=== PATIENT | female | born 1985 | race Caucasian/White ===

== ENCOUNTER 2022-08-19 07:56 | Outpatient (CLI) | payer MEDICARE, MEDICAID, SELFPAY | END 2022-08-19 07:57 | disposition home or self-care (01) | PROVIDERS: PCP Family Medicine; Visit Provider Family Medicine | DX: Z00.00 Encounter for general adult medical examination without abnormal findings (principal); E03.9 Hypothyroidism, unspecified; E78.5 Hyperlipidemia, unspecified; R03.0 Elevated blood-pressure reading, without diagnosis of hypertension | CPT/HCPCS: 80053; 80061; 84443 ==

== ENCOUNTER 2022-09-29 07:44 | Outpatient (CLI) | payer MEDICARE, MEDICAID, SELFPAY | END 2022-09-29 07:45 | disposition home or self-care (01) | PROVIDERS: PCP Family Medicine; Visit Provider Family Medicine | DX: Z01.419 Encounter for gynecological examination (general) (routine) without abnormal findings (principal); R35.0 Frequency of micturition | CPT/HCPCS: 87086 ==

== ENCOUNTER 2022-10-09 07:56 | Outpatient (CLI) | payer MEDICARE, MEDICAID, SELFPAY | END 2022-10-09 07:57 | disposition home or self-care (01) | PROVIDERS: PCP Family Medicine; Visit Provider Family Medicine | DX: I37.0 Nonrheumatic pulmonary valve stenosis (principal); I35.1 Nonrheumatic aortic (valve) insufficiency; Q93.82 Williams syndrome | CPT/HCPCS: 93306 ==

== ENCOUNTER 2023-11-17 08:47 | Outpatient (CLI) | payer MEDICARE, MEDICAID, SELFPAY ==
--- OUTSIDE RECORDS SUMMARY | 2023-11-18 11:05 | XMS_ITS | Encounter Summary ---
Author Organization [facility] Address [address] [place] [address] Care Team Providers Care Hackler Doll Wigs Name Role Phone Nevin Ac M.D. Primary Care Provider [phone] Reason for Referral * Outpatient (Routine) - Authorized Specialty Diagnoses / Procedures Referred By Sonya moreno Referred To Contact Nevin Ac M.D. [address] [place] [address] [facility] Referral ID Status Reason Start Date Expiration Date V isits Requested Visits Authorized [id number] Authorized 08/24/2023 02/22/2025 1 1 Scheduling Instructions Nurse AWV Do not schedule prior to due date to ensure insurance coverage Visit: Medicare Annual Wellness Never done. BARBER Encounter Details Date Type Department Care Team (Late st Contact Info) Description 08/24/2023 Orders Only [facility] MNT Nevin Ac M.D. [address] [place] [address] Hypothyroidism Social History Tobacco Use Types Packs/Day Years Used Date Smoking Tobacco: Never Smokeless Tobacco: Never Alcohol Use Standard Drinks/Week Comments No 0 (1 standard drink = 0.6 oz pur e alcohol) Humiliation, Afraid, Rape, and Kick questionnair e Answer Date Recorded Within the last year, have y ou been afraid of your partner or ex-partner? No 04/15/2021 Within the last year, have y ou been humiliated or emotionally abused in other ways by your partner or ex-partner? No Within the last year, have y ou been kicked, hit, slapped, or otherwise physically hurt by your partner or ex-partner? No 04/15/2021 Within the last year, have y ou been raped or forced to have any kind of sexual activity by your partner or ex-partner? No 04/15/2021 Social Connection and Isolat ion Panel [NHANES] Answer Date Recorded In a typical week, how many times do you talk on the phone with family, friends, or neighbors? More than three times a week 04/15/2021 How often do you get togethe r with friends or relatives? Once a week 04/15/2021 How often do you attend chur ch or mandaeism services? 1 to 4 times per year 04/15/2021 Do you belong to any clubs o r organizations such as christian groups, unions, fraternal or athletic groups, or school groups? Yes 04/15/2021 How often do you attend meet ings of the clubs or organizations you belong to? 1 to 4 times per year 04/15/2021 Are you , , di vorced, , never , or living with a partner? Never 04/15/2021 AUDIT-C Answer Date Recorded Q1: How often do you have a drink containing alc ohol? Monthly or less 04/15/2021 Q2: How many drinks containi ng alcohol do you have on a typical day when you are drinking? 1 or 2 04/15/2021 Q3: How often do you have si x or more drinks on one occasion? Never 04/15/2021 Overall Financial Resource Strain (CARDIA) Answe r Date Recorded How hard is it for you to pa y for the very basics like food, housing, medical care, and heating? Not very hard 04/15/2021 PHQ-2 Answer Date Recorded PHQ-2 Score 0 04/15/2021 [facility] - Occupational Stress Questionnaire Answer Date Recorded Do you feel stress - tense, restless, nervous, or anxious, or unable to sleep at night because your mind is troubled all the time - these days? To some extent 04/15/2021 Exercise Vital Sign Answer Date Recorde d On average, how many days pe r week do you engage in moderate to strenuous exercise (like a brisk walk)? 2 days 04/15/2021 On average, how many minutes do you engage in exercise at this level? 20 min 04/15/2021 Hunger Vital Sign Answer Date Recorded Within the past 12 months, y ou worried that your food would run out before you got the money to buy more. Never true 04/15/20 21 Within the past 12 months, t he food you bought just didn't last and you didn't have money to get more. Never true 04/15/2021 PRAPARE - Transportation Answer Date Re corded In the past 12 months, has l ack of transportation kept you from medical appointments or from getting medications? No 03/22 In the past 12 months, has l ack of transportation kept you from meetings, work, or from getting things needed for daily living? No 04/15/2021 Housing Stability Vital Sign Answer Steven e Recorded In the last 12 months, was t here a time when you were not able to pay the mortgage or rent on time? No 04/15/2021 In the last 12 months, how many places have you lived? 1 04/15/2021 In the last 12 months, was t here a time when you did not have a steady place to sleep or slept in a nursing home (including now)? No 04/15/2021 Depression Answer Date Recor ded PHQ-9 Total Score (max 27) 0 04/15 Nutrition Answer Date Recorded Nutrition: EVOO Fat Source No 04/15 On average, how many serving s of fruits and vegetables do you eat per day (serving size is equal to 1 cup or approximately the size of a tennis ball)? 0-1 04/15/2021 Dental Answer Date Recorded Dental: Regular Dentist Yes 06/19/20 Employment Answer Date Recorded Employment status Employed and actively working without restrictions 04/15/2021 Education Answer Date Recorded What is the highest level of school you have completed or the highest degree you have received? 12th grade 04/15/2021 Sex and Gender Information Value Date Recorded Sex Assigned at Not on file Gender Identity Not on file Sexual Orientation Not on file documented as of this encounter Plan of Treatment Scheduled Orders Name Type Priority Associated Diagnoses Orde r Schedule S-TSH (Thyroid-Stimulating Hormone - Sensitive) Lab Routine Hypothyroidism Expected: 09/07/2023, Expires: 02/20/2024 Scheduled Referrals Name Type Priority Associated Diagnoses Orde r Schedule Primary Care nurse visit (clinic) - [facility] Region; Medicare Annual Wellness Outpatient Referral Routine Expected: 09/21/2023, Expires: 02/20/2024 documented as of this encounter Visit Diagnoses Diagnosis Hypothyroidism documented in this encounter Additional Health Concerns Assessment Noted Time PHQ-9 Depression Total Score: 0 04/15/20 21 2:33 PM CDT documented as of this encounter Care Teams Hackler Doll Wigs Relationship Specialty Start Date End Date Nevin Ac M.D. [address] [place] [phone] PCP - General 12/05/21 documented as of this encounter
--- OUTSIDE RECORDS SUMMARY | 2023-11-18 11:05 | XMS_ITS | Referral Summary ---
Author Organization [facility] Address [address] [place] [address] Care Team Providers Care English Tutor Name Role Phone Nevin Ac M.D. Primary Care Provider [phone] Source Comments Patient records contain information from all sites at [facility]. For routine questions regarding patient records, call [phone] during business hours, M-F 8:00 AM - 5:00 PM Central Time. Record requests for emergency care only can be directed to [phone] at any time.[facility] Encounters Date Type Department Care Team Description 10/15/2023 Refill Department of Family Medicine, [facility], in [place], [place] [address] [place] [phone] Lindsey Medina M.D. Med Refill 08/24/2023 Orders Only [facility] M.[facility] Hypothyroidism from Last 3 Months Allergies No known active allergies Medications Medication Sig Dispensed Refills Start Date End Date Status omega 1-xzu-dsz-fish oil (fish oil) 100-160-1,000 mg capsule Take 1,000 mg by mouth daily. 90 capsule 3 07/28/2021 Active polyethylene glycol (MIRALAX) 17 gram/dose oral powderIndications: Constipation Take 17 g by mouth 3 (three) times a day. DISSOLVE 17GM IN LIQUID OF CHOICE AND DRINK THREE TIMES A DAY 1700 g 11 05/06/2022 Active magnesium hydroxide 400 mg/5 mL suspension TAKE 30 ML BY MOUTH AT BEDTIME. 2700 mL 3 08/11/2022 Active oxybutynin (DITROPAN XL) 15 mg 24 hr tablet TAKE ONE TABLET BY MOUTH DAILY 90 tablet 3 08/11/2022 Active omeprazole (PriLOSEC) [address] capsule TAKE ONE CAPSULE BY MOUTH TWO TIMES A DAY 180 capsule 3 08/11/2022 Active fluticasone propionate (FLONASE) 50 mcg/actuation nasal spray Administer 2 sprays into each nostril daily. 48 g 3 08/11/2022 Active traZODone (DESYREL) 50 mg tablet TAKE ONE TABLET BY MOUTH AT BEDTIME 90 tablet 3 08/11/2022 Active levothyroxine (SYNTHROID, LEVOTHROID) 75 mcg tablet TAKE ONE TABLET BY MOUTH DAILY 90 tablet 3 08/11/2022 Active ketoconazole (NIZORAL) 2 % shampoo APPLY TO DAMP SKIN, LATHER, LEAVE ON 5 MINUTES, AND RINSE TWICE WEEKLY 360 mL 3 08/11/2022 Active FLUoxetine (PROzac) 40 mg capsule TAKE ONE CAPSULE BY MOUTH DAILY 90 capsule 3 08/11/2022 Active loratadine (CLARITIN) 10 mg tablet TAKE ONE TABLET BY MOUTH DAILY 90 tablet 3 08/11/2022 Active baclofen (LioresaL) 10 mg tablet take 2 tablets by mouth three times a day 540 tablet 3 10/15/2023 Active Hospital, Clinic, or Other Facility Administered Medication Ordered Dose Route Frequency Start Date End Date Status medroxyPROGESTERone injection 150 mgIndications:Management Contraception By Injection 150 mg IM Every 12 weeks 04/17/2021 Active Active Problems Patient Care Coordination No te Formatting of this note migh t be different from the original. 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 Major Depressive Disorder, Recurrent, Unspecifie d 03/04/2010 Overview: Depressive psychosis, recurrent episodes Constipation 03/04/2010 Immunizations Name Administration Dates Next Due 4vHPV (discontinued) 06/20/2014,11/24/2007,01/20 DT, Pediatric 12/03/2000 H1N1 Inj 06/03/2009 HepA Adult 06/20/2014,01/20/2007 Influenza (IM) Preservative Free 04/09/2016 Influenza, Seasonal, Injectable 04/05/20 13,04/06/2012,05/30/2008,2006,04/26/2006 Influenza, Unspecified 05/05/2015,2013,04/04/2013,2009 SARS-COV-2 (COVID-19) - MODERNA(Discontinued) 04/15/2021,10/15/2020,09/17/2020 SARS-COV-2 (COVID-19) - PFIZ ER BIVALENT TS(Discontinued)(12 YEARS OR OLDER) 03/27/2022 Tdap 06/15/2012 influenza vaccine quad (FLUZONE/FLUARIX) (6 months and older)(PF) 03/27/2022,04/15/2021,04/02/2020,2018,04/28/2018 Social History Tobacco Use Types Packs/Day Years [...] often do you attend chur ch or mosque services? 1 to 4 times per year 04/15/2021 Do you belong to any clubs o r organizations such as roman catholic groups, unions, fraternal or athletic groups, or [...] Answer Date Recorded PHQ-2 Score 0 04/15/2021 [facility] - Occupational Stress [...] place to sleep or slept in a custodial (including now)? No 04/15/2021 Depression Answer Date [...] on file Sexual Orientation Not on file Last Filed Vital Signs Vital Sign Reading Time Taken Comments Blood Pressure 131/88 01/19/2022 4:07 PM CDT Pulse 72 10/10/2021 4:31 PM CDT Temperature 36.9 ??C (98.4 ??F) 04/15/2021 2:33 PM CD T Respiratory Rate 16 04/15/2021 2:33 PM CDT Oxygen Saturation - - Inhaled Oxygen Concentration - - Weight 80.8 kg (178 lb 2.1 oz) 07/03/2022 4:29 P M IT ADMINISTRATOR Height 159 cm (5' 2.6) 04/15/2021 2:33 PM CDT Body Mass Index 31.96 04/15/2021 2:33 PM CDT Plan of Treatment Not on file Procedures Procedure Name Priority Date/Time Associated Diagnosis Comments LIPID PANEL, S Routine 04/15/2021 3:42 PM CDT Screening Lipid THYROID-STIMULATING HORMONE-SENSITIVE (S-TSH) Routine 04/15/2021 3:42 PM CDT Hypothyroidism On Replacement THINPREP DIAGNOSTIC HPV REFLEX Routine 04/02/2020 4:35 PM CDT Pap Smear Examination from Last 3 Months or Most Recently Relevant to Health Maintenance Results * (ABNORMAL) Lipid Panel (04/15/2021 3:42 PM CDT) Cholesterol, Total 235(H) mg/dL 2020 6:42 PM CDT OWAT Comment: ----REFERENCE VALUE---- Desirable: < 200 Borderline high: 200 - 239 High: > or = 240 Triglycerides 59 mg/dL 04/15/2021 6:42 PM CDT OWAT Comment: ----REFERENCE VALUE---- Normal: <150 Borderline high: 150-199 High: 200-499 Very high: > or =500 Cholesterol, HDL 77 >=50 mg/dL 04/15/20 6:42 PM CDT OWAT Calculated LDL 146(H) mg/dL 04/15/2021 6:42 PM CDT OWAT Comment: ----REFERENCE VALUE---- Desirable: <100 mg/dL Above Desirable: 100-129 mg/dL Borderline High: 130-159 mg/dL High: 160-189 mg/dL Very High: >=190 mg/dL Cholesterol, Non-HDL, Calculated 158 mg/dL 04/15/2021 6:42 PM CDT OWAT Comment: ----REFERENCE VALUE---- Desirable: <130 Above Desirable: 130-159 Borderline high: 160-189 High: 190-219 Very high: > or =220 Blood (Blood, Venous) 04/15/2021 3:42 PM CDT 04/15/2021 6:28 PM CDT Lindsey Medina M.D. LAB BLOO D ADD-ON Performing Organization Address City/[facility]/ZIP Co de Phone Number [facility] [address] [place] [address], [place] OWAT [facility] [place] [address] [place] [address] * S-TSH (Thyroid-Stimulating Hormone - Sensitive) (04/15/2021 3:42 PM CDT) TSH, Sensitive 2.4 0.3 - 4.2 mIU/L 04/15/2021 6:50 PM CDT OW Blood (Blood, Venous) 04/15/2021 3:42 PM CDT 04/15/2021 6:28 PM CDT Lindsey Medina M.D. LAB BLOO D ADD-ON Performing Organization Address [facility] Co de Phone Number [facility] [address] [place] [address], [facility] [place] [address] [place] [phone] * (ABNORMAL) ThinPrep Diagnostic HPV Reflex (04/02/2020 4:35 PM CDT) (A) 0 7:35 AM CDT [facility] Report electronically signed by Colin Bolaños MD I verify that I have examined all relevant slides/material s for the specimen(s) and rendered or confirmed the diagnosis. (A) 04/10/2020 7:35 AM CDT [facility] Gross Description Received specimen in a ThinPrep vial.(A) 04/10/2020 7:35 AM CDT [facility] Pap Test Source Cervical/Endoce rvical(A) 04/10/2020 7:35 AM CDT [facility] Clinical History cervical/endoce rvical(A) 04/10/2020 7:35 AM CDT [facility] Menstrual Status(LMP, PM, ) no menses(A) 04/10/2020 7:35 AM CDT [facility] Hormone Therapy/Contracep tives None/Not known(A) 04/10/2020 7:35 AM CDT [facility] Interpretation Cervical/Endoce rvical ??(ThinPrep): Satisfactory for Evaluation Epithelial Cell Abnormality Atypical squamous cells of undetermined significance High Risk HPV: ??Negative Negative for High Risk HPV by nucleic acid amplification. The following High Risk HPV types were not detected: 16, 18, 31, 33, 35, 39, 45, 51, 52, 56, 58, 59, 66, and 68. (A) 04/10/2020 7:35 AM CDT [facility] Varies (Cervix/Endocerv ix) 04/02/2020 4:35 PM CDT 04/03/2020 7:57 AM CDT Lindsey Medina M.D. LAB PAP PATHDX ORDERABLES Performing Organization Address City/State/[facility] Co de Phone Number [facility] [address] [place] [address], [facility] [address] [place] [address] from Last 3 Months or Most Recently Relevant to Health Maintenance Care Teams English Tutor Relationship Specialty Start Date End Date Nevin Ac M.D. [address] [place] [address] [place] [phone] PCP - General 12/05/21
--- OUTSIDE RECORDS SUMMARY | 2023-11-18 11:05 | XMS_ITS | Encounter Summary ---
Author Organization [facility] Address [address] [place] [address] Care Team Providers Care Information Services Assistant Name Role Phone Nevin Ac M.D. Primary Care Provider [phone] Reason for Visit * Reason Comments Med Refill Encounter Details Date Type Department Care Team (Late st Contact Info) Description 10/15/2023 Refill Department of Family Medicine, [facility], in [place], [place] [address] [place] [address] Lindsey Medina M.D. [address] [place] [address] Med Refill Social History Tobacco Use Types Packs/Day Years [...] often do you attend chur ch or baptism services? 1 to 4 times per year 04/15/2021 Do you belong to any clubs o r organizations such as yazidism groups, unions, fraternal or athletic groups, or [...] Answer Date Recorded PHQ-2 Score 0 04/15/2021 [facility] Questionnaire Answer Date Recorded [...] place to sleep or slept in a half-way (including now)? No 04/15/2021 Depression Answer Date [...] as of this encounter Plan of Treatment Not on file documented as of this encounter Visit Diagnoses Not on filedocumented in this encounter Additional Health Concerns Assessment Noted Time PHQ-9 Depression Total Score: 0 04/15/20 21 2:33 PM CDT documented as of this encounter Care Teams Information Services Assistant Relationship Specialty Start Date End Date Nevin Ac M.D. [address] [place] [phone] PCP - General 12/05/21 documented as of this encounter
--- OUTSIDE RECORDS SUMMARY | 2023-11-18 11:05 | XMS_ITS | Clinical Summary ---
Author Organization [facility] Address [address] [place] [address] Care Team Providers Care Sheet Metal Worker Maintenance Name Role Phone Nevin Ac M.D. Primary Care Provider [phone] Source Comments Patient records contain information from all sites at [facility]. For routine questions regarding patient records, call [phone] during business hours, M-F 8:00 AM - 5:00 PM Central Time. Record requests for emergency care only can be directed to [phone] at any time.[facility] Allergies No known active allergies Medications Medication Sig Dispensed Refills Start Date End Date Status omega 7-tzz-agr-fish oil (fish oil) 100-160-1,000 mg capsule Take [...] original. 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 Med Refill 08/24/2023 Orders Only [facility] Nevin Ac M.D. Hypothyroidism from Last 3 Months Immunizations Name Administration Dates Next Due 4vHPV (discontinued) 06/20/2014,11/24/2007,01/20 DT, Pediatric 12/03/2000 H1N1 Inj 06/03/2009 HepA Adult 06/20/2014,01/20/2007 Influenza (IM) Preservative Free 04/09/2016 Influenza, Seasonal, Injectable 04/05/20 13,04/06/2012,05/30/2008,2006,04/26/2006 Influenza, Unspecified 05/05/2015,2013,04/04/2013,2009 SARS-COV-2 (COVID-19) - MODERNA(Discontinued) 04/15/2021,10/15/2020,09/17/2020 SARS-COV-2 (COVID-19) - PFIZ ER BIVALENT TS(Discontinued)(12 YEARS OR OLDER) 03/27/2022 Tdap 06/15/2012 influenza vaccine quad (FLUZONE/FLUARIX) (6 months and older)(PF) 03/27/2022,04/15/2021,04/02/2020,2018,04/28/2018 Family History Medical History Relation Name Comments Hyperlipidemia Father Hypertension Father Colon cancer Grandfather No Known Problems Mother Thyroid cancer Sister Relation Name Status Comments Father Alive Grandfather Mother Alive Sister Social History Tobacco Use Types Packs/Day Years [...] 04/15/2021 How often do you attend chur or synagogue services? 1 to 4 times per year 04/15/2021 Do you belong to any clubs o r organizations such as congregational groups, unions, fraternal or athletic groups, or [...] Answer Date Recorded PHQ-2 Score 0 04/15/2021 [facility] of Occupat ional Health - Occupational [...] place to sleep or slept in a long-term (including now)? No 04/15/2021 Depression Answer Date [...] lb 2.1 oz) 07/03/2022 4:29 P M ADULT PROBATION OFFICER Height 159 cm (5' 2.6) 04/15/2021 2:33 PM CDT Body Mass Index 31.96 04/15/2021 2:33 PM CDT Plan of Treatment Health Maintenance Due Date Last Done Comments HIV Screening 1987 Hepatitis C Screening 1987 Visit: Medicare Annual Wellness 1987 Hepatitis B Vaccines (1 of 3 - 19+ 3-dose series) 12/19/2006 Depression Monitoring (PHQ-9) 08/16/2021 04/15/2021 Thyroid Stimulating Hormone (TSH) test for thyroid function 04/15/2022 04/15/2021, 04/02/2020, 01/09/2019, Additional history exists Influenza Vaccine (#1) 2023 , 04/15/2021, 04/02/2020, Additional history exists Cervical Cancer Screening 04/02/20252019, 04/02/2020, 10/08/2016, Additional history exists Lipid (Cholesterol) Screening 04/15/2026 04/15/2021, 09/25/2015, 06/23/2013, Additional history exists DTaP,Tdap,and Td Vaccines (4 - Td or Tdap) 09/29/2032 09/29/2022, 06/15/2012, 12/03/2000 Colonoscopy Discontinued 09/26/2013 Colonoscopy Discontinued 09/26/2013 Colorectal Cancer Screening Discontinued Colorectal Cancer Surveillance Discontinued HPV Vaccines Completed 06/20/2014, 05/23, 11/24/2007, Additional history exists COVID-19 Vaccine Completed 04/02/2023, 12/2021, 04/15/2021, Additional history exists CT Colonography Discontinued CT Colonography Discontinued Cologuard Discontinued FIT Discontinued Pneumococcal vaccine (0-64 years) Aged Out No longer eligible based on patient's age to complete this topic Procedures Procedure Name Priority Date/Time Associated Diagnosis [...] Lindsey Medina M.D. LAB BLOO D ADD-ON [facility] [address] [place] [address], [facility] OWAT [facility] [place] [address] [place] [address] * S-TSH (Thyroid-Stimulating Hormone - Sensitive) (04/15/2021 3:42 PM CDT) TSH, Sensitive 2.4 0.3 - 4.2 mIU/L 04/15/2021 6:50 PM CDT OW Blood (Blood, Venous) 04/15/2021 3:42 PM CDT 04/15/2021 6:28 PM CDT Lindsey Medina M.D. LAB BLOO D ADD-ON [facility] [address] [place] [address], [facility] OWAT [facility] [place] [address] [place] [address] * (ABNORMAL) ThinPrep Diagnostic HPV Reflex (04/02/2020 4:35 PM CDT) (A) 0 7:35 AM CDT [facility] Report electronically signed by Colin Bolaños MD [...] Lindsey Medina M.D. LAB PAP PATHDX ORDERABLES [facility] [address] [place] [address], [place] [facility] [address] [place] [address] from Last 3 Months or Most Recently Relevant to Health Maintenance Care Teams Sheet Metal Worker Maintenance Relationship Specialty Start Date End Date Nevin Ac M.D. [address] [place] [phone] PCP - General 12/05/21
--- OUTSIDE RECORDS SUMMARY | 2023-11-18 11:05 | XMS_ITS ---
Author Organization [facility] Address [address] [place] [address] Care Team Providers Care Occupational Health And Safety Adviser Name Role Phone Unavailable Unavailable Unavailable Surgery Details Not on file Complications Check Surgery Details section. Procedure Estimated Blood Loss Check Surgery Details section. Procedure Findings Check Surgery Details section. Procedure Specimens Taken Check Surgery Details section.
--- OUTSIDE RECORDS SUMMARY | 2023-11-18 11:05 | XMS_ITS | Clinical Summary ---
Author Organization [email or web address] Address [place], [place] [address] Care Team Providers Care Newspaper Photographer Name Role Phone Danielle Perales MD Primary Care Provider + Allergies No known active allergies Medications Medication Sig Dispensed Refills Start Date End Date Status baclofen (LIORESAL) 10 mg tablet Take 20 mg by mouth 3 times daily. Active loratadine (CLARITIN) 10 mg tablet Take 10 mg by mouth once daily. Active docusate (COLACE) 100 mg capsuleIndications:c onstipation Take 100 mg by mouth 2 times daily. Indications: CONSTIPATION Active FLUoxetine (SARAFEM; RAPIFLUX) 20 mg tablet Take 20 mg by mouth every morning. Active ketoconazole 2% shampoo (NIZORAL) 2 % shampoo Apply topically to affected area(s). Lather on damp scalp, leave on for 5min, then rinse with water. Active MAGNESIUM HYDROXIDE (MILK OF MAGNESIA ORAL) Take 30 mL by mouth once every other day. Active DOCOSAHEXANOIC ACID/EPA (FISH OIL ORAL)Indications:Sup plement Take 1,000 mg by mouth once daily. Indications: Supplement Active norgestimate-ethinyl estradiol (ORTHO TRI-CYCLEN, 28,) 0.18/0.215/0.25 mg-35 mcg (28) tabletIndications:pr egnancy contraception Take 1 tablet by mouth once daily. Indications: CONTRACEPTION Active oxybutynin (DITROPAN XL) 15 mg CR tablet Take 15 mg by mouth once daily. Active omeprazole (PRILOSEC) 20 mg capsule Take 20 mg by mouth 2 times daily before meals. Active levothyroxine (SYNTHROID) 50 mcg tabletIndications:hy pothyroidism Take 50 mcg by mouth once daily. Indications: HYPOTHYROIDISM Active polyethylene glycol (MIRALAX) 17 g powder for solutionIndications: constipation Take 17 g by mouth 2 times daily. Indications: CONSTIPATION Active Immunizations Name Administration Dates Next Due Influenza, High-dose Inactivated 04/04/2013 Tdap 06/15/2012 Social History Tobacco Use Types Packs/Day Years Used Date Smoking Tobacco: Never Smokeless Tobacco: Never Tobacco Cessation:Counseling Given: Yes Sex and Gender Information Value Date Recorded Sex Assigned at Not on file Gender Identity Not on file Sexual Orientation Not on file Obstetrics History Last Filed Vital Signs Vital Sign Reading Time Taken Comments Blood Pressure 128/88 09/27/2015 2:11 PM CDT Pulse 84 09/27/2015 2:11 PM CDT Temperature 36.6 ??C (97.9 ??F) 09/27/2015 2:11 PM CD T Respiratory Rate 16 09/26/2013 11:15 AM CDT Oxygen Saturation 96% 09/27/2015 2:11 PM CDT Inhaled Oxygen Concentration - - Weight 73 kg (161 lb) 09/27/2015 2:11 PM CDT Height 165.1 cm (5' 5) 09/27/2015 2:11 PM CDT Body Mass Index 26.79 09/27/2015 2:11 PM CDT Plan of Treatment Health Maintenance Due Date Last Done Comments Depression screening for age 12+ 1999 HIV for age 15-65 12/19/2002 Hepatitis C screening for age 18-79 12/19/2005 BMI (ht and wt on same day) for age 18+ 09/26/2016 09/27/2015 Tetanus booster 06/15/2022 06/15/2012 COVID-19 vaccine series (2022-24 season) 2023 03/27/2022, 04/15/2021, 10/15/2020, Additional history exists Influenza for age 9-49 02/20/2024 Pap test for age 21-65 09/29/2025 09/29/2022, 2022 Tdap Completed 06/15/2012 Pneumococcal series for age 6-64 Aged Out No longer eligible based on patient's age to complete this topic Procedures Procedure Name Priority Date/Time Associated Diagnosis Comments HPV THIN PREP Routine 09/29/2022 7:45 AM CDT from Last 3 Months or Most Recently Relevant to Health Maintenance Results * HPV HIGH RISK (09/29/2022 7:45 AM CDT) TYPE 16 Negative Negative 10/02/2022 10:46 AM CDT [facility] TYPE 18 Negative Negative 10/02/2022 10:46 AM CDT [facility] OTHER HIGH RISK TYPES Negative Negative 10/02/2022 10:46 AM CDT [facility] Other (Cervical/Vagina l) 09/29/2022 7:45 AM CDT 09/30/2022 6:01 PM CDT Narrative [facility] - 10/02/2022 10:46 AM CDT HPV types 16, 18, 31, 33, 35, 39, 45, 51, 52, 56, 58, 59, 66 and 68 DNA were undetectable or below the pre-set threshold. Methodology: Bella Sonja 4800 HPV Test Danielle Perales MD MICROBIOLOGY [facility] [address] [place] [address], from Last 3 Months or Most Recently Relevant to Health Maintenance Advance Directives * Full Code (Latest Code Status on File) Date Activated Date Inactivated Comments 09/26/2013 7:39 AM 09/26/2013 2:44 PM Care Teams Newspaper Photographer Relationship Specialty Start Date End Date Danielle Perales MD [address] [place] [address] PCP - General Family Practice 10/09/22
== END 2023-11-17 08:48 | disposition home or self-care (01) ==
LOC: NFLDREF 11-18 11:01
PROVIDERS: PCP Family Medicine; Referring Provider Family Medicine; Visit Provider Family Medicine
DX: Z00.00 Encounter for general adult medical examination without abnormal findings (principal); E03.9 Hypothyroidism, unspecified; E78.5 Hyperlipidemia, unspecified; K59.09 Other constipation; Z13.9 Encounter for screening, unspecified
CPT/HCPCS: 80053; 80061; 84443

== ENCOUNTER 2024-11-29 10:47 | Outpatient (CLI) | payer MEDICAID, SELFPAY | END 2024-11-29 10:48 | disposition home or self-care (01) | PROVIDERS: PCP Family Medicine; Visit Provider Family Medicine | DX: E03.9 Hypothyroidism, unspecified (principal); E78.5 Hyperlipidemia, unspecified; R53.83 Other fatigue | CPT/HCPCS: 80053; 80061; 84443 ==

== ENCOUNTER 2024-12-28 12:57 | Outpatient (CLI) | payer MEDICAID, SELFPAY ==
--- NOTE | 2024-12-28 13:00 | CRLHL7_ITS ---
For Patients: As a result of the 21st Century Cures Act, medical imaging exams and procedure reports are released immediately into your electronic medical record. You may view this report before your referring provider. If you have questions, please contact your health care provider. EXAM: MRI OF THE RIGHT ANKLE, WITHOUT CONTRAST CLINICAL INDICATION: Right ankle pain/sprain. COMPARISON PLAIN FILMS: 12/18/2024, 11/29/2024 and 07/28/2024. COMPARISON CROSS-SECTIONAL IMAGING STUDIES: None. TECHNICAL: Axial, sagittal and coronal T1, PD, PD FS and STIR images. FINDINGS: OSSEOUS STRUCTURES: No fracture, bone marrow contusion, stress change or marrow replacement process. JOINT SPACES: The ankle joint space is maintained without joint effusion. No talar dome osteochondral lesion. No joint bodies are identified. The subtalar joints are maintained. The talonavicular and calcaneocuboid joint spaces are maintained. Joint spaces within the visualized midfoot and at the midfoot forefoot junction are maintained. LIGAMENTS: Syndesmotic Ligaments: The anterior and posterior syndesmotic ligaments are intact. Lateral Ligaments: Diffuse thickening and increased signal in the anterior talofibular ligament consistent with a partial-thickness tear. Mild adjacent edema. The calcaneofibular ligament is intact. The posterior talofibular ligament is intact. Medial Ligaments: The superficial and deep components of the deltoid ligament complex are maintained. Spring Ligaments: The calcaneonavicular spring ligament complex is intact. TENDONS: Flexor Tendons: The posterior tibial, flexor digitorum longus and flexor hallucis longus tendons are intact. Extensor Tendons: The anterior extensor tendons are intact. Achilles Tendon: The Achilles tendon is intact without tendinosis, tear or peritendinitis changes. Peroneal Tendons: The peroneus longus and brevis tendons are intact. No subluxation of the peroneal tendons. TARSAL TUNNEL: The soft tissues of the tarsal tunnel are normal without mass or fluid collection. No abnormality along the course of the medial or lateral plantar nerves. SINUS TARSI: The structures of the sinus tarsi appear normal. No disruption of the interosseous ligaments or significant effacement of fat. PLANTAR SOFT TISSUES: The plantar fascia is intact. No atrophy or edema of the abductor digiti minimi muscle belly. SOFT TISSUES: Mild subcutaneous edema adjacent to the lateral malleolus. No hematoma. IMPRESSION: 1. Partial-thickness tear of the anterior talofibular ligament. 2. Mild lateral malleolar subcutaneous edema. 3. Remainder unremarkable. Dictated by Esteban Baires MD @ 12/30/2024 12:19:05 PM (Electronically Signed)
== END 2024-12-28 12:58 | disposition home or self-care (01) ==
PROVIDERS: PCP Family Medicine; Visit Provider Podiatrist
DX: M25.571 Pain in right ankle and joints of right foot (principal); S93.491A Sprain of other ligament of right ankle, initial encounter
CPT/HCPCS: 73721